=== PATIENT | male | born 1955 | race Caucasian/White ===

== ENCOUNTER → 2024-02-18 14:08 | Outpatient (REF) | payer MEDICARE, OTHER, SELFPAY | LOC: RAD 14:08 | PROVIDERS: ATTENDING PHYSICIAN Physician Assistant Medical | DX: M79.89 Other specified soft tissue disorders (principal); R60.0 Localized edema | CPT/HCPCS: 93971 ==

== ENCOUNTER → 2024-04-15 06:53 | Outpatient (REF) | payer MEDICARE, OTHER, SELFPAY ==
[2024-04-15 09:37] LABS: % Basophils 1.1 % (0-2); % Eosinophils 2.7 % (0-6); % Immature Granulocytes 0.2 % (0-0.5); % Lymphocytes 46.9 % (20.5-51.1); % Monocytes 10.3 % (1.7-9.3); % Neutrophils 38.8 % (42.2-75.2); Absolute Basophils 0.1 10^3/uL (0-0.2); Absolute Eosinophils 0.2 10^3/uL (0-0.7); Absolute Monocytes 0.7 10^3/uL (0.1-0.6); Absolute Neutrophils 2.5 10^3/uL (1.4-6.5); Hematocrit 48.5 % (39.0-52.0); Hemoglobin 16.9 g/dL (13.0-18.0); Mean Corp Hgb Conc. 34.8 g/dL (33.0-37.0); Mean Corpuscular Volume 88.8 fL (80.0-94.0); Mean Platelet Volume 10.3 fL (7.4-10.4); Nucleated Red Blood Cells % 0 % (-); Platelet Count 168 10^3/uL (130-400); Red Blood Cell Count 5.46 10^6/uL (4.70-6.10); White Blood Cell Count 6.4 10^3/uL (4.8-10.8)
[2024-04-15 09:51] LABS: ALT (SGPT) 102 U/L (0-50); AST (SGOT) 75 U/L (17-59); Albumin 4.1 g/dl (3.5-5.0); Alkaline Phosphatase 72 U/L (38-126); Blood Urea Nitrogen 14 mg/dl (9-20); Carbon Dioxide 29 mmol/L (22-30); Chloride 106 mmol/L (98-107); Glucose 117 mg/dl (70-99); HDL Cholesterol 39 mg/dl; LDL Cholesterol, Calculated 95 mg/dl; Potassium 3.8 mmol/L (3.5-5.1); Sodium 140 mmol/L (135-145); Total Bilirubin 1.3 mg/dl (0.2-1.3); Total Cholesterol 166 mg/dl (50-199); Total Protein 7.3 g/dl (6.3-8.2); Triglyceride 160 mg/dl (10-149); Very Low Density Lipoprotein 32 mg/dl (0-30); eGFR > 60.00
[2024-04-15 10:25] LABS: PSA, Total - Diagnostic 1.07 ng/ml (0.0-4.0); TSH Reflex To Free T4 3.07 uIU/ml (0.47-4.68)
[2024-04-15 11:02] LABS: Glycohemoglobin (HgbA1c) 6.1 % (4.0-5.6)
== END ==
LOC: HWLAB 06:53
PROVIDERS: ATTENDING PHYSICIAN Physician Assistant Medical
DX: I10 Essential (primary) hypertension (principal); E78.2 Mixed hyperlipidemia; R73.01 Impaired fasting glucose; E66.01 Morbid (severe) obesity due to excess calories; N40.1 Benign prostatic hyperplasia with lower urinary tract symptoms
CPT/HCPCS: 36415; 80053; 80061; 83036; 84153; 84443; 85025

== ENCOUNTER → 2024-04-30 08:18 | Outpatient (REF) | payer MEDICARE, OTHER, SELFPAY ==
[2024-04-30 09:52] LABS: GGTP 180 U/L (15-73)
[2024-05-01 19:30] LABS: Hepatitis B Surface Antigen Negative (Negative)
[2024-05-01 19:47] LABS: Hepatitis C Antibody Negative (Negative)
== END ==
LOC: HWLAB 08:18
PROVIDERS: ATTENDING PHYSICIAN Physician Assistant Medical
DX: R74.8 Abnormal levels of other serum enzymes (principal)
CPT/HCPCS: 36415; 82977; 86709; 86803; 87340

== ENCOUNTER → 2024-06-04 07:36 | Outpatient (REF) | payer MEDICARE, OTHER, SELFPAY | LOC: HWRAD 07:36 | PROVIDERS: ATTENDING PHYSICIAN Physician Assistant Medical | DX: R74.8 Abnormal levels of other serum enzymes (principal) | CPT/HCPCS: 76700 ==

== ENCOUNTER → 2024-09-15 08:37 | Outpatient (REF) | payer MEDICARE, OTHER, SELFPAY ==
[2024-09-15 12:27] LABS: ALT (SGPT) 86 U/L (0-50); AST (SGOT) 55 U/L (17-59); Albumin 4.2 g/dl (3.5-5.0); Alkaline Phosphatase 58 U/L (38-126); Blood Urea Nitrogen 17 mg/dl (9-20); Calcium 9.1 mg/dl (8.4-10.2); Carbon Dioxide 26 mmol/L (22-30); Chloride 106 mmol/L (98-107); Glucose 149 mg/dl (70-99); HDL Cholesterol 39 mg/dl; LDL Cholesterol, Calculated 91 mg/dl; Potassium 3.6 mmol/L (3.5-5.1); Sodium 141 mmol/L (135-145); Total Bilirubin 1.4 mg/dl (0.2-1.3); Total Cholesterol 164 mg/dl (50-199); Total Protein 7.1 g/dl (6.3-8.2); Triglyceride 171 mg/dl (10-149); Very Low Density Lipoprotein 34 mg/dl (0-30); eGFR > 60.00
== END ==
LOC: HWLAB 08:37
PROVIDERS: ATTENDING PHYSICIAN Physician Assistant Medical
DX: R94.5 Abnormal results of liver function studies (principal); E78.2 Mixed hyperlipidemia
CPT/HCPCS: 36415; 80053; 80061

== ENCOUNTER → 2025-05-11 07:32 | Outpatient (REF) | payer MEDICARE, OTHER, SELFPAY ==
[2025-05-11 10:27] LABS: Hematocrit 46.8 % (39.0-52.0); Hemoglobin 16.9 g/dL (13.0-18.0); Mean Corp Hgb Conc. 36.1 g/dL (33.0-37.0); Mean Corpuscular Volume 88.8 fL (80.0-94.0); Nucleated Red Blood Cells % 0 % (-); Platelet Count 183 10^3/uL (130-400); Red Cell Dist. Width 12.8 % (11.5-14.5)
[2025-05-11 10:44] LABS: ALT (SGPT) 77 U/L (0-50); AST (SGOT) 50 U/L (17-59); Albumin 4.2 g/dl (3.5-5.0); Alkaline Phosphatase 59 U/L (38-126); Blood Urea Nitrogen 16 mg/dl (9-20); Calcium 9.0 mg/dl (8.4-10.2); Carbon Dioxide 26 mmol/L (22-30); Chloride 108 mmol/L (98-107); Glucose 130 mg/dl (70-99); HDL Cholesterol 38 mg/dl; LDL Cholesterol, Calculated 102 mg/dl; Potassium 3.7 mmol/L (3.5-5.1); Sodium 139 mmol/L (135-145); Total Protein 7.5 g/dl (6.3-8.2); Very Low Density Lipoprotein 33 mg/dl (0-30); eGFR > 60.00
[2025-05-11 11:15] LABS: PSA, Total - Diagnostic 1.16 ng/ml (0.0-4.0)
[2025-05-11 11:22] LABS: Glycohemoglobin (HgbA1c) 6.1 % (4.0-5.6)
[2025-05-11 15:13] LABS: Amylase 60 U/L (30-110); Lipase 97 U/L (23-300)
== END ==
LOC: HWRAD 07:32
PROVIDERS: ATTENDING PHYSICIAN Physician Assistant Medical
DX: R60.0 Localized edema (principal); I10 Essential (primary) hypertension; E78.2 Mixed hyperlipidemia; R73.01 Impaired fasting glucose; Z12.5 Encounter for screening for malignant neoplasm of prostate; N40.1 Benign prostatic hyperplasia with lower urinary tract symptoms
CPT/HCPCS: 36415; 80053; 80061; 82150; 83036; 83690; 84153; 84443; 85025; 93971